=== PATIENT | male | born 1990 | race Caucasian/White ===

== ENCOUNTER → 2016-05-31 | Outpatient (CLI) | payer OTHER | LOC: RAD 13:48 | PROVIDERS: ATTEND Internal Medicine Cardiovascular Disease | DX: I10 Essential (primary) hypertension (principal) | CPT/HCPCS: 76770 ==

== ENCOUNTER 2016-10-21 17:54 | Inpatient (IN) | payer OTHER ==
--- NOTE | 2016-10-21 18:40 | ER Document Report ---
ED Medical Screen (RME) - General Chief Complaint: Abscess Stated Complaint: LEFT ARM SWELLING Time Seen by Provider: 10/21/16 18:39 Mode of Arrival: Ambulatory Information source: Patient Notes: This is a 26-year-old male with a history of substance abuse and IV heroin abuse who presents with left forearm swelling and erythema. Patient states his last tetanus shot was 8 months ago. Patient was started on Bactrim yesterday by his primary care doctor (Dr. Ben Anaya). Also on metoprolol 100 mg twice daily. The patient states that the erythema and swelling to the arm started 2 days ago. He denies any fever. He denies any significant pain. TRAVEL OUTSIDE OF THE [place] IN LAST 30 DAYS: No - Related Data Allergies/Adverse Reactions: Penicillins Allergy (Verified 10/21/16 18:09) Past Medical History Renal/ Medical History: Denies: Hx Peritoneal Dialysis Physical Exam - Vital signs Vitals: Temp Pulse Resp BP Pulse Ox 98.0 F 100 12 122/69 99 10/21/16 18:11 10/21/16 18:11 10/21/16 18:11 10/21/16 18:11 10/21/16 18:11 Course - Vital Signs Vital signs: Temp Pulse Resp BP Pulse Ox 98.0 F 100 12 122/69 99 10/21/16 18:11 10/21/16 18:11 10/21/16 18:11 10/21/16 18:11 10/21/16 18:11
[2016-10-21] MEDS ORDERED: VANCOMYCIN HCL INJ 1000 MG VIAL IV ONE (18:41)
[2016-10-21 18:59] LABS: ABSOLUTE EOSINOPHILS # (AUTO) 0.1 10^3/uL (0.0-0.6); ABSOLUTE LYMPHOCYTES (AUTO) 1.1 10^3/uL (0.5-4.7); ABSOLUTE MONOCYTES (AUTO) 0.6 10^3/uL (0.1-1.4); ABSOLUTE NEUT (AUTO) 5.7 10^3/uL (1.7-8.2); BASOPHILS % (AUTO) 0.5 % (0-2); EOSINOPHILS % (AUTO) 1.6 % (0-6); HEMATOCRIT 39.1 % (37.9-51.0); HGB HCT DIFFERENCE -0.1; LYMPHOCYTES % (AUTO) 14.3 % (13-45); MEAN CORPUSCULAR HEMOGLOBIN 26.5 pg (27.0-33.4); MEAN CORPUSCULAR HGB CONC 33.2 g/dL (32.0-36.0); MEAN CORPUSCULAR VOLUME 80 fl (80-97); MONOCYTES % (AUTO) 8.2 % (3-13); RED CELL DISTRIBUTION WIDTH 13.8 % (11.5-14.0); SEGMENTED NEUTROPHILS % (AUTO) 75.4 % (42-78); WHITE BLOOD COUNT 7.6 10^3/uL (4.0-10.5)
[2016-10-21 19:08] LABS: PROTHROMBIN TIME 14.4 SEC (11.4-15.4)
--- NOTE | 2016-10-21 19:31 | ER Document Report ---
ED Skin Rash/Insect Bite/Abscs - General Chief Complaint: Abscess Stated Complaint: LEFT ARM SWELLING Time Seen by Provider: 10/21/16 18:39 Mode of Arrival: Ambulatory Information source: Patient Notes: 26-year-old male presents to ED multiple abscesses to the left arm with erythema from the elbow down to the wrist. He has 4+ edema to the extremity from the elbow to the wrist. He states he self injects heroin and oxymorphone and also snorts Xanax. He is caring for his father who has a history of MRSA he. He states he smokes a pack a day but does not drink alcohol. TRAVEL OUTSIDE OF THE [place] IN LAST 30 DAYS: No - HPI Patient complains to provider of: Tender/swollen area Onset: Other - Since about Monday Onset/Duration: Gradual, Worse Quality of pain: Pressure, Sharp Severity: Moderate Pain Level: 4 Skin Character: Abscess - IV drug use, Erythema, Swelling, Tenderness, Thickening Skin Temperature: Warm Quality of rash: Painful Identify cause: Yes Exacerbated by: Movement Relieved by: Denies Similar symptoms previously: Yes Recently seen / treated by doctor: Yes - Related Data Allergies/Adverse Reactions: Penicillins Allergy (Verified 10/21/16 18:09) Past Medical History - General Information source: Patient - Social History Smoking Status: Current Every Day Smoker Cigarette use (# per day): Yes - Half a pack a day Chew tobacco use (# tins/day): No Smoking Education Provided: Yes - Less than 2 minutes Frequency of alcohol use: None Drug Abuse: Heroin, Prescription drugs Occupation: none Lives with: Family Family History: Arthritis, Hyperlipidemia, Hypertension, Malignancy Patient has suicidal ideation: No Patient has homicidal ideation: No - Past Medical History Cardiac Medical History: Reports: None Pulmonary Medical History: Reports: None EENT Medical History: Reports: None Neurological Medical History: Reports: None Endocrine Medical History: Reports: None Renal/ Medical History: Reports: None Malignancy Medical History: Reports None GI Medical History: Reports: None Musculoskeltal Medical History: Reports None Skin Medical History: Reports Hx Cellulitis Psychiatric Medical History: Reports: Other - Drug addiction Traumatic Medical History: Reports: None Infectious Medical History: Reports: None Past Surgical History: Reports: Other - I&D of abscesses - Immunizations Immunizations up to date: Yes Hx Diphtheria, Pertussis, Tetanus Vaccination: Yes Review of Systems - Review of Systems Constitutional: No symptoms reported EENT: No symptoms reported Cardiovascular: No symptoms reported Respiratory: No symptoms reported Gastrointestinal: No symptoms reported Genitourinary: No symptoms reported Male Genitourinary: No symptoms reported Musculoskeletal: No symptoms reported Skin: Other - Abscess to left arm due to IV drug use with erythema and swelling Hematologic/Lymphatic: No symptoms reported Neurological/Psychological: No symptoms reported -: Yes All other systems reviewed and negative Physical Exam - Vital signs Vitals: Temp Pulse Resp BP Pulse Ox 98.0 F 100 12 122/69 99 10/21/16 18:11 10/21/16 18:11 10/21/16 18:11 10/21/16 18:11 10/21/16 18:11 Interpretation: Normal - General General appearance: Appears well, Alert - HEENT Head: Normocephalic, Atraumatic Eyes: Normal Pupils: PERRL - Respiratory Respiratory status: No respiratory distress Chest status: Nontender Breath sounds: Normal Chest palpation: Normal - Cardiovascular Rhythm: Regular Heart sounds: Normal auscultation Murmur: No - Abdominal Inspection: Normal Distension: No distension Bowel sounds: Normal Tenderness: Nontender Organomegaly: No organomegaly - Back Back: Normal, Nontender - Extremities General lower extremity: Normal inspection, Nontender, Normal color, Normal ROM , Normal temperature, Normal weight bearing. No: Robin's sign Forearm: Tender, Other - Abscess with erythema and swelling Wrist: Tender, Other - erythema swelling - Neurological Neuro grossly intact: Yes Cognition: Normal Orientation: AAOx4 [place] Coma Scale Eye Opening: Spontaneous [place] Coma Scale Verbal: Oriented [place] Coma Scale Motor: Obeys Commands [place] Coma Scale Total: 15 Speech: Normal Motor strength normal: LUE, RUE, LLE, RLE Sensory: Normal - Psychological Associated symptoms: Normal affect, Normal mood - Skin Skin Temperature: Warm Skin Moisture: Dry Skin Color: Normal Course - Re-evaluation Re-evalutation: 10/21/16 20:58 Phone by the nursing staff that they thought the patient was completely. Went down and spoke with the patient patient states no he knows that he has to stay he have to get admitted to be seen by the surgeon and get IV body. Mother at bedside she states now they know that he needs to stay. - Vital Signs Vital signs: Temp Pulse Resp BP Pulse Ox 98.0 F 100 12 122/69 99 10/21/16 18:11 10/21/16 18:11 10/21/16 18:11 10/21/16 18:11 10/21/16 18:11 - Laboratory Result Diagrams: 10/21/16 18:45 10/21/16 19:35 Laboratory results interpreted by me: 10/21/16 10/21/16 10/21/16 18:45 19:35 19:35 Hgb 13.0 L MCH 26.5 L Plt Count 124 L ESR 54 H Sodium 136.2 L Chloride 97 L C-Reactive Protein 166.7 H Albumin 3.2 L - Consults Cain Olivares Time consulted: 20:33 Reason for consultation: 10/21/16 20:55 Iv drug use abscess to left arm with cellulites up to upper arm Consulted provider: will come to ER martin Time consulted: 20:35 Reason for consultation: 10/21/16 20:57 Surgeon requested a consult hospitalist to follow drug addiction problem while he is in the hospital. Spoke with Dr. Dixon and he will see the patient. Patient will be admitted to Dr. Thee Olivares. Consulted provider: will come to ER Discharge - Discharge Clinical Impression: Intravenous drug abuse, Abscess of left arm Admitting Provider: Surgicalist - cain olivares Unit Admitted: Surgical Floor Referrals: NATASHA ALBRIGHT MD [Primary Care Provider] - Follow up as needed
[2016-10-21 20:12] LABS: ALANINE AMINOTRANSFERASE 39 U/L (21-72); ALBUMIN 3.2 g/dL (3.5-5.0); ALKALINE PHOSPHATASE 112 U/L (38-126); ANION GAP 11 (5-19); ASPARTATE AMINO TRANSFERASE 24 U/L (17-59); BILIRUBIN,DIRECT 0.3 mg/dL (0.0-0.4); BILIRUBIN,TOTAL 0.5 mg/dL (0.2-1.3); BLOOD UREA NITROGEN 14 mg/dL (7-20); CALCIUM 8.5 mg/dL (8.4-10.2); CARBON DIOXIDE 28 mmol/L (22-30); CHLORIDE 97 mmol/L (98-107); CREATININE RESULT 0.85 mg/dL (0.52-1.25); GLUCOSE 110 mg/dL (75-110); POTASSIUM 4.3 mmol/L (3.6-5.0); SODIUM 136.2 mmol/L (137-145); TOTAL PROTEIN 6.5 g/dL (6.3-8.2)
[2016-10-21 20:25] LABS: C-REACTIVE PROTEIN 166.7 mg/L (<10.0)
[2016-10-21] MEDS ORDERED: DEXTROSE 40% GEL 15 GM TUBE PO PRN ×2 (21:31)
[2016-10-21] MEDS ORDERED: GLUCAGON,HUMAN RECOMB 1 MG INJ SUBCUT PRN (21:31)
[2016-10-21] MEDS ORDERED: ONDANSETRON HCL INJ/PF 4 MG/2 ML SDV IV PRN (21:31)
[2016-10-21] MEDS ORDERED: DEXTROSE 50%-WATER 25 GM/50 ML DISP.SYRIN IV PRN ×2 (21:31)
[2016-10-21] MEDS ORDERED: VANCOMYCIN HCL INJ 500 MG VIAL IV SCH (21:45)
[2016-10-21] MEDS ORDERED: LEVOFLOXACIN 500 MG/D5W RTU 500 MG/100 ML RTUPB IV ONE (22:00)
[2016-10-21] MEDS ORDERED: NICOTINE 14 MG/24 HR PATCH.TD24 TD PRN (22:14)
--- NOTE | 2016-10-21 22:54 | RADIOLOGY REPORT (SQ) ---
EXAM DESCRIPTION: FOREARM LEFT COMPLETED DATE/TIME: 10/21/2016 10:00 pm REASON FOR STUDY: IVDA with infection left arm COMPARISON: None. NUMBER OF VIEWS: Two views. TECHNIQUE: Two radiographic images acquired of the left forearm, including elbow and wrist in at [address] one projection. LIMITATIONS: None. FINDINGS: MINERALIZATION: Normal. BONES: No acute fracture. No worrisome bone lesions. SOFT TISSUES: Medial swelling. Possible 8 mm linear radiopaque foreign body in the anterior mid fore arm on the radial aspect. . OTHER: No other significant finding. IMPRESSION: Medial swelling. Possible 8 mm linear radiopaque foreign body in the anterior mid forea rm on the radial aspect. No osseous abnormality. TECHNICAL DOCUMENTATION: JOB ID: [id number] [employer]- All Rights Reserved
[2016-10-21] MEDS: POTASSI CL 20 MEQ/1/2NS 1L 1,000 ML IV PRN (23:21)
[2016-10-21] MEDS: VANCOMYCIN HCL 1,250 MG in DEXTROSE 5%-WATER 250 ML IV SCH (23:22)
--- NOTE | 2016-10-21 23:34 | HISTORY AND PHYSICAL E ---
History and Physical NAME: ISAÍAS ZAPATA : 1990 AGE: 26Y ADMITTED: 10/21/2016 ROOM: 403 REASON FOR ADMISSION: Left arm swelling and erythema. HISTORY OF PRESENT ILLNESS: The patient is a 26-year-old male with a history of IVDA. He has undergone previous incision and drainage of the right arm almost a year ago. He continues to use intravenous drugs and now presents with an infection in the left arm from the needle injection sites. He developed pain but no numbness in the arm. He has full use of his hand at this time without any obvious disability. 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 The wounds have in the past had MRSA according to the patient. PAST SURGICAL HISTORY: Incision and drainage of right arm abscess. PAST MEDICAL HISTORY: 1. Polysubstance abuse. 2. History of overdose. 3. History of seizure secondary to drug overdose. 4. Possible hypertension, as he was started on metoprolol but is unknown what this truly for being prescribed by his PCP. HABITS: The patient smokes half a pack a day. He uses heroin, methamphetamines and benzodiazepines. SOCIAL HISTORY: The patient lives with family. FAMILY HISTORY: Hypertension. MEDICATIONS: 1. Clonidine. 2. Bactrim. REVIEW OF SYSTEMS: CARDIAC: Denies any chest pain. PULMONARY: Denies shortness of breath. ABDOMEN: Denies any abdominal pain. PSYCHOLOGICAL: The patient has polysubstance abuse. MUSCULOSKELETAL: Pain and swelling along with erythema, left arm. A 12-point review of systems obtained with pertinent positives discussed and all others negative. PHYSICAL EXAMINATION: VITAL SIGNS: Temperature is 98, blood pressure 122/69, pulse is 100. GENERAL: The patient is sitting up in bed in no distress at the current time. HEENT: Eyes nonicteric. NECK: No lymphadenopathy. HEART: Regular. LUNGS: Clear. ABDOMEN: Soft, nontender. EXTREMITIES: Left arm: The patient has swelling from the wrist to the elbow. On the volar aspect is a 3 cm abscess with significant swelling around it and erythema. NEUROLOGICAL: The patient is neurologically intact without any deficits including the left hand. The arm is tender. LABORATORY DATA: White blood cell count is 7.6, hematocrit 39. ASSESSMENT: 1. Left forearm infection with cellulitis and abscess from IVDA. I recommend the patient be admitted to the hospital and undergo incision and drainage. I have discussed doing it in the emergency room versus surgery. He would like to have it done with sedation, which we will proceed that type of procedure. The risks and possible complications of incision and drainage of left arm abscess with cellulitis have been explained to him, including but not limited to bleeding, infection, disability, continued infection needing further surgery, worsening of the infection, or chronic wound, the patient needing wound care as an outpatient, anesthesia risks. He accepts the risks and wishes to proceed. 2. History of IVDA. Recommend hospitalist consult to help manage any issues that may arise in regard to this. 3. The patient is on antihypertensive medications and what this truly is for is unknown. The hospitalist will help evaluate this. 4. Tobacco dependency. PLAN: 1. The patient will be admitted to the hospital. 2. N.p.o. 3. IV fluids. 4. IV antibiotics. 5. Incision and drainage of the infection in the left arm. 6. Hospitalist consult to help manage medical issues. 7. X-ray of the left arm to ensure no foreign bodies are present. DICTATING PHYSICIAN: ELLA PATE M.D. [id number] PHY#: [id number] ID: [id number] JOB#: [id number] ACCT: [id number] cc:ELLA PATE M.D. >
[2016-10-22] MEDS: VANCOMYCIN HCL 1,250 MG in DEXTROSE 5%-WATER 250 ML IV SCH ×3 (05:21→22:08)
[2016-10-22] MEDS: MORPHINE SULFATE 10 MG/ML INJ IV PRN ×6 (05:21→22:08)
[2016-10-22 05:49] LABS: APPEARANCE,URINE CLEAR; BILIRUBIN,URINE NEGATIVE (NEGATIVE); GLUCOSE, URINE NEGATIVE (NEGATIVE); KETONES,URINE NEGATIVE (NEGATIVE); LEUKOCYTE ESTERASE,URINE NEGATIVE (NEGATIVE); NITRITE,URINE NEGATIVE (NEGATIVE); PROTEIN,URINE NEGATIVE (NEGATIVE); URINE SPECIFIC GRAVITY 1.009
[2016-10-22 06:03] LABS: URINE BARBITURATES SCREEN NEGATIVE; URINE METHADONE SCREEN NEGATIVE; URINE PHENCYCLIDINE SCREEN NEGATIVE
[2016-10-22 06:28] LABS: URINE OPIATES LOW UNCONFIRMED POSITIVE
[2016-10-22] MEDS ORDERED: FENTANYL CITRATE INJ/PF 100 MCG/2 ML AMPUL ONE ×2 (10:11)
[2016-10-22] MEDS ORDERED: MORPHINE SULFATE 10 MG/ML INJ ONE (10:12)
[2016-10-22] MEDS ORDERED: MIDAZOLAM 2 MG/2 ML INJ ONE (10:12)
[2016-10-22] MEDS ORDERED: PROPOFOL INJ 200 MG/20 ML VIAL IV ONE (10:12)
[2016-10-22] MEDS ORDERED: MORPHINE SULFATE 10 MG/ML INJ IV PRN (11:14)
[2016-10-22] MEDS ORDERED: FENTANYL CITRATE INJ/PF 100 MCG/2 ML AMPUL IV PRN ×3 (11:14)
[2016-10-22] MEDS ORDERED: MEPERIDINE HCL/PF INJ 25 MG/1 ML DISP.SYRIN IV PRN (11:14)
[2016-10-22] MEDS ORDERED: OXYCODONE-ACETAMINOPHEN 5-325 MG TABLET PO PRN ×2 (11:14)
[2016-10-22] MEDS ORDERED: DIPHENHYDRAMINE HCL 50 MG/ML VIAL IV PRN (11:14)
[2016-10-22] MEDS ORDERED: PROMETHAZINE HCL INJ 25 MG/1 ML VIAL IV PRN ×2 (11:14)
[2016-10-22] MEDS ORDERED: LIDOCAINE 0.5%/EPINEPHRINE INJ 50 ML VIAL ONE (11:22)
--- NOTE | 2016-10-22 11:59 | RADIOLOGY REPORT (SQ) ---
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 IMPRESSION: Please see combined report for performance of procedure and radiologic supervision and i nterpretation.
--- NOTE | 2016-10-22 11:59 | RADIOLOGY REPORT (SQ) ---
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 FLUOROSCOPY TIME: 6 second 2 images saved to PACS. TECHNIQUE: Intra-operative images acquired during surgical procedure to evaluate progress. NUMBER OF IMAGES: 2 image LIMITATIONS: None. FINDINGS: Fluoroscopic images were obtained during localization of a radiopaque foreign body. IMPRESSION: IMAGE(S) OBTAINED DURING PROCEDURE. COMMENT: Quality ID [id number]: Final reports for procedures using fluoroscopy that document radiation exp osure indices, or exposure time and number of fluorographic images (if radiation exposure indices are not available) Please consult full operative report of the attending physician for description of the procedure. TECHNICAL DOCUMENTATION: JOB ID: [id number] [employer]- All Rights Reserved
[2016-10-22] MEDS: LEVOFLOXACIN 500 MG/D5W RTU 500 MG/100 ML RTUPB IV SCH (12:30)
[2016-10-22] MEDS: METOPROLOL SUCCINATE 50 MG TAB.SR.24H PO SCH ×2 (13:14→22:08)
[2016-10-22] MEDS: POTASSI CL 20 MEQ/1/2NS 1L 1,000 ML IV PRN (16:15)
--- NOTE | 2016-10-22 23:39 | OPERATIVE REPORT E ---
Operative Report NAME: ISAÍAS ZAPATA : 1990 AGE: 26Y DATE OF SURGERY: 10/22/2016 ROOM: 403 PREOPERATIVE DIAGNOSES: 1. Left arm cellulitis with abscess secondary to IVDA. 2. Foreign body in the left arm. POSTOPERATIVE DIAGNOSIS: 1. Left arm cellulitis with abscess secondary to IVDA. 2. Foreign body in the left arm. OPERATION: 1. Fluoroscopic evaluation of left forearm for foreign body. 2. Incision, drainage and debridement of left forearm abscess/infection. SURGEON: ELLA PATE M.D. ANESTHESIA: MAC. INDICATION FOR PROCEDURE: The patient is a 76-year-old male with history of polysubstance abuse and IVDA. He has a previous abscess on the right forearm that was I and D'd less than a year ago. He now presents with swelling, painful area and necrotic area on his left arm where there is likely an abscess. X-rays show a foreign body, most likely a broken needle in the forearm. It is not known whether this is in the area of the infection/abscess. FINDINGS OF PROCEDURE: The patient's foreign body was located on the thenar aspect of the forearm. His abscess was on the hypothenar and was not close. Therefore, it was left alone. The patient had a 5 cm abscess, which was incised and drained along with the overlying skin being debrided due to necrosis. He still has significant swelling being present on the rest of the forearm along with cellulitis. PROCEDURE: The patient was taken to the procedure room and placed in the supine position. MAC anesthesia was administered. The patient's left arm was then prepped and draped in the usual sterile fashion. The skin around the abscess necrotic area was then injected with 1% lidocaine. An elliptical vertical incision was then made over the abscess, removing a small portion of skin. The abscess cavity was then entered and fluid was sent for Gram stain, culture and sensitivity. Necrotic debris was then removed. This abscess appeared to be in the subcutaneous tissue and was complex. All loculations were broken up, in which there were multiple, to ensure there was not continued infection. The wound was then irrigated and hemostasis was obtained using electrocautery. The wound was then packed open with a moist gauze and a dry dressing was placed on top. The patient was then awakened and taken from the operating room in stable condition. ESTIMATED BLOOD LOSS: Less than 5 cc. COMPLICATIONS: None. CONDITION: The patient at the end of the procedure was stable. SPECIMENS: Fluid for Gram stain, culture and sensitivity. DRAINS/PACKS: The wound was packed open. CLASSIFICATION OF WOUND: Dirty. DICTATING PHYSICIAN: ELLA PATE M.D. [id number] PHY#: [id number] ID: [id number] JOB#: [id number] ACCT: [id number] cc:ELLA PATE M.D. >
[2016-10-23] MEDS: MORPHINE SULFATE 10 MG/ML INJ IV PRN ×10 (00:04→22:19)
[2016-10-23 06:25] LABS: CREATININE RESULT 0.69 mg/dL (0.52-1.25)
[2016-10-23] MEDS: VANCOMYCIN HCL 1,250 MG in DEXTROSE 5%-WATER 250 ML IV SCH ×3 (06:52→22:19)
[2016-10-23] MEDS: METOPROLOL SUCCINATE 50 MG TAB.SR.24H PO SCH ×2 (09:10→22:19)
[2016-10-23] MEDS: LEVOFLOXACIN 500 MG/D5W RTU 500 MG/100 ML RTUPB IV SCH (09:10)
[2016-10-23] MEDS: POTASSI CL 20 MEQ/1/2NS 1L 1,000 ML IV PRN (14:10)
[2016-10-23] MEDS ORDERED: LIDOCAINE 2%/EPINEPHRINE INJ 20 ML VIAL INJ ONE (16:00)
--- NOTE | 2016-10-24 00:19 | PROGRESS NOTE E ---
Progress Note NAME: ISAÍAS ZAPATA : 1990 AGE: 26Y DATE: 10/23/2016 ROOM: 403 SUBJECTIVE: The patient is postoperative day 1 incision and drainage of a left forearm abscess. The patient is just having pain at the surgical site. OBJECTIVE: VITAL SIGNS: Temperature is 98.9, pulse 91, blood pressure 136/81. LEFT ARM: Abscess at the medial aspect is clean and healing. He has now developed another abscess more proximal on the forearm. This will need to be incised and drained. The erythema is decreasing, but he still has significant amount of swelling being present in the arm. DIAGNOSTIC DATA: Cultures are gram-stain only, being gram-positive cocci. White blood cell count of 8, hemoglobin 10. PROCEDURE: The patient's left arm was prepped and draped in the usual sterile fashion. The skin overlying the abscess on the distal forearm on the left side was then injected with 2% lidocaine with epi. An elliptical incision was then made over the abscess. The abscess cavity was then entered and purulent fluid was removed. It was then irritated. It was then packed with a moist gauze and dry dressing placed on top. ASSESSMENT: MULTIPLE ABSCESSES LEFT ARM SECONDARY TO IV DRUG USE. Cultures are pending at the current time. He is currently on Levaquin and Flagyl with slow improvement. Continue local wound. If he continues to have erythema, then consideration of ultrasound to see if he has any underlying abscess that cannot be palpated or seen as a cause of the continued infection. PLAN: 1. Continue local wound care. 2. Continue IV antibiotics. DICTATING PHYSICIAN: ELLA PATE M.D. [id number] Y#: [id number] ID: [id number] JOB#: [id number] ACCT: [id number] cc: >
[2016-10-24] MEDS: MORPHINE SULFATE 10 MG/ML INJ IV PRN ×7 (00:44→19:55)
[2016-10-24] MEDS: VANCOMYCIN HCL 1,250 MG in DEXTROSE 5%-WATER 250 ML IV SCH (03:38)
[2016-10-24] MEDS: LEVOFLOXACIN 500 MG/D5W RTU 500 MG/100 ML RTUPB IV SCH (09:22)
[2016-10-24] MEDS: POTASSI CL 20 MEQ/1/2NS 1L 1,000 ML IV PRN (11:48)
[2016-10-24] MEDS: METOPROLOL SUCCINATE 50 MG TAB.SR.24H PO SCH ×2 (11:52→21:05)
[2016-10-24] MEDS ORDERED: ONDANSETRON HCL INJ/PF 4 MG/2 ML SDV IV PRN (15:00)
--- NOTE | 2016-10-24 16:17 | PDOC PROGRESS REPORT ---
Subjective Progress Note for:: 10/24/16 Subjective:: Patient says he feels better. States his arm swelling and pain have diminished Physical Exam Vital Signs: Temp Pulse Resp BP Pulse Ox 98.4 F 57 L 16 125/71 98 10/24/16 08:00 10/24/16 08:00 10/24/16 08:00 10/24/16 08:00 10/24/16 08:00 Intake & Output 10/23/16 10/24/16 10/25/16 06:59 06:59 06:59 Intake Total 990 1470 500 Output Total 910 Balance 80 1470 500 Weight 81.8 kg 81.8 kg General appearance: PRESENT: no acute distress Musculoskeletal exam: PRESENT: other - Left arm dressing removed. Operative sites with packing examined, packing removed, cavities clean, with small open areas with some early granulation tissue; surrounding skin edema and erythema have improved markedly. Results Laboratory Results: 10/24/16 08:49 10/24/16 08:49 Creatinine 0.60 Est GFR ( Amer) > 60 Est GFR (Non-Af Amer) > 60 Impressions: Fluoroscopy 10/22/16 00:00 IMPRESSION: Please see combined report for performance of procedure and radiologic supervision and interpretation. Forearm X-Ray 10/22/16 00:00 IMPRESSION: IMAGE(S) OBTAINED DURING PROCEDURE. Assessment & Plan - Diagnosis (1) Abscess of left arm Is this a current diagnosis for this admission?: YesPlan: Impression: Status post incision and drainage packing of 2 abscesses left upper extremity 1 and 2 days ago, doing well, with clinical improvement across-the- board Plan: 1. Patient is growing MRSA; he is on appropriate intravenous antibiotics vancomycin and Levaquin. 2. We will start him on dressing changes, get his mother involved in assisting , and educated he and his family on community management of MRSA 3. Would suggest managing with p.o. antibiotics rather than IV so as to minimize exposure to risk of intravenous drug abuse through the medical IV
[2016-10-24] MEDS: VANCOMYCIN HCL 1,000 MG in DEXTROSE 5%-WATER 250 ML IV SCH (17:34)
[2016-10-25] MEDS: VANCOMYCIN HCL 1,000 MG in DEXTROSE 5%-WATER 250 ML IV SCH ×2 (01:09→12:33)
[2016-10-25] MEDS: POTASSI CL 20 MEQ/1/2NS 1L 1,000 ML IV PRN (03:28)
[2016-10-25] MEDS: MORPHINE SULFATE 10 MG/ML INJ IV PRN ×2 (03:35→09:12)
[2016-10-25] MEDS: METOPROLOL SUCCINATE 50 MG TAB.SR.24H PO SCH (09:13)
[2016-10-25] MEDS ORDERED: LEVOFLOXACIN 500 MG TABLET PO SCH (10:00)
--- NOTE | 2016-10-25 12:43 | PDOC DISCHARGE SUMMARY ---
General - Admit/Disc Date/PCP Admission Date/Primary Care Provider: 10/21/16 21:31 NATASHA ALBRIGHT Discharge Date: 10/25/16 - Discharge Diagnosis (1) Abscess of left arm Is this a current diagnosis for this admission?: Yes - Additional Information Resuscitation Status: Full Code Home Medications: Clonidine [Catapres-Tts 1 (0.1 mg/24 Hr) Transderm Patch] 1 patch TD ZAYAS@1000 10/31 Metoprolol Succinate [Toprol XL 100 mg Tablet] 100 mg PO Q12 10/21/16 Sulfamethoxazole/Trimethoprim [Bactrim Ds Tablet] 1 tab PO Q12 10/21/16 Levofloxacin [Levaquin 500 mg Tablet] 500 mg PO DAILY #0 tablet 10/25/16 History of Present Illness Patient complains of: pain and swelling of LUE at sites of abscesses, secondary to IVD abuse History of Present Illness: ISAÍAS ZAPATA is a 26 year old male Hospital Course Hospital Course: Patient was taken to OR for I&D of two abscesses of his LUE. Pt. tolerated the procedure well. Dressings were changed on POD#2. Wounds look better. Will D/C home today. Physical Exam Vital Signs: Temp Pulse Resp BP Pulse Ox 98.2 F 57 L 16 127/73 H 98 10/25/16 11:35 10/25/16 11:35 10/25/16 11:35 10/25/16 11:35 10/25/16 11:35 Intake & Output 10/24/16 10/25/16 10/26/16 06:59 06:59 06:59 Intake Total 1470 2910 100 Balance 1470 2910 100 Weight 81.8 kg 78.6 kg General appearance: PRESENT: no acute distress Head exam: PRESENT: atraumatic Eye exam: PRESENT: conjunctiva pink Mouth exam: PRESENT: moist, neck supple Neck exam: PRESENT: full ROM. ABSENT: JVD, lymphadenopathy, tenderness, thyromegaly, tracheal deviation, tracheostomy Respiratory exam: PRESENT: clear to auscultation lynne, symmetrical Cardiovascular exam: PRESENT: RRR Vascular exam: PRESENT: normal capillary refill GI/Abdominal exam: PRESENT: normal bowel sounds, soft Rectal exam: PRESENT: deferred Extremities exam: PRESENT: tenderness - Mild tendernes at sites of I&D., other Musculoskeletal exam: PRESENT: full ROM Results Laboratory Results: 10/24/16 08:49 10/22/16 11:24 Arm - Left Cellulitis Gram Stain - Final 10/22/16 11:24 Arm - Left Cellulitis Wound Culture - Final Mrsa (Meth Resis Staph Aureus) No Anaerobic Organisms Impressions: Fluoroscopy 10/22/16 00:00 IMPRESSION: Please see combined report for performance of procedure and radiologic supervision and interpretation. Forearm X-Ray 10/22/16 00:00 IMPRESSION: IMAGE(S) OBTAINED DURING PROCEDURE.
[2016-10-25 13:51] VITALS: BP 118/59
== END 2016-10-25 15:13 | disposition home or self-care (01) | DRG 572 ==
LOC: ER 17:54 → EH 21:01 → UNDOADMIN 21:01 → EH 21:31 → 4N 22:33
PROVIDERS: ADMIT Surgery; ATTEND Surgery
PROC: 0JBH0ZZ Excision of Left Lower Arm Subcutaneous Tissue and Fascia, Open Approach (ICD-10-PCS; principal; 2016-10-22 10:00)
DX: L03.114 Cellulitis of left upper limb (principal); L02.414 Cutaneous abscess of left upper limb; B95.62 Methicillin resistant Staphylococcus aureus infection as the cause of diseases classified elsewhere; F17.210 Nicotine dependence, cigarettes, uncomplicated; F11.90 Opioid use, unspecified, uncomplicated; F13.90 Sedative, hypnotic, or anxiolytic use, unspecified, uncomplicated; F15.90 Other stimulant use, unspecified, uncomplicated; Z79.899 Other long term (current) drug therapy; Z88.0 Allergy status to penicillin; Z82.49 Family history of ischemic heart disease and other diseases of the circulatory system; Z82.61 Family history of arthritis; Z80.9 Family history of malignant neoplasm, unspecified
CPT/HCPCS: 01810; 36415; 80053; 80202; 80307; 81001; 82565; 85025; 85610; 85652; 86140; 87040; 87070; 87075; 87077; 87186; 87205; 96365; 99285; J1956; J2250; J2270; J2405; J2704; J3010; J3370; J3480; J3490; J7060